=== PATIENT | male | born 1990 | race Caucasian/White ===

== ENCOUNTER 2020-07-28 19:55 | Emergency (ER) | payer OTHER, SELFPAY ==
[2020-07-28 20:45] VITALS: BP 177/104; PULSE 116; RESP 15; TEMP 37; O2SAT 100; BMI 31.7
--- NOTE | 2020-07-28 23:00 | PC.NURSE ---
PT PRESENTS WITH REPORTS OF CENTRALIZED ABD PAIN CONSTANT AT FIRST THEN INTERMITTENT. REPORTS BM WITH BRIGHT RED BLOOD ON TOILET PAPER. NAUSEA NO VOMITING, DENIES FEVER/CHILLS. STATES TRAVELED TO AND FROM [place] -07/28 AND ATE A LOT OF ETHNIC FOOD. DENIES SICK CONTACTS. SKIN PWD RESPIRATIONS EVEN UNLABORED. AWAITING TESTING. AWARE OF PLAN OF CARE.
[2020-07-28 23:02] VITALS: BP 169/99; PULSE 93; RESP 16; TEMP 36.8; O2SAT 97
--- NOTE | 2020-07-28 23:19 | ED_ITS ---
HPI - Abdominal Pain General Chief Complaint: Abdominal Pain Stated Complaint: ABD PAIN Time Seen by Provider: 07/28/20 22:58 Source: patient Mode of arrival: ambulatory History of Present Illness HPI narrative: patient states that today started with diarrhea. Several bouts. With a little bit of blood in his prove however that has resolved. Started having right upper quadrant cramping and some nausea. Went to urgent care and was referred to emergency department for evaluation. Upon arrival to emergency department symptoms have almost resolved. No fevers no chills. No dizziness no syncope MD elicited complaint: abdominal pain Pertinent past history: none Onset (ago): day(s) ( 1 day) Pain Consistency: now resolved Location: epigastric and RUQ Severity: mild Quality: cramping Related Data Previous Rx's Medication Instructions Recorded dicyclomine 20 mg PO BID #14 cap 07/29/20 ondansetron 4 mg PO Q8H PRN 5 Days #15 tab 07/29/20 Allergies Allergy/AdvReac Type Severity Reaction Status Date / Time No Known Allergies Allergy Verified 07/28/20 22:59 [No Known Allergies*] Review of Systems Review of Systems Constitutional : No Weight loss, No Fever, No Chills, No Night Sweats, No Fatigue, No Malaise ENT/Mouth : No Hearing loss, No Ear Pain, No Nasal Congestion, No Sinus Pain, No Hoarseness, No sore throat, No Rhinorrhea, No Swallowing Difficulty Eyes: No Eye Pain, No Swelling, No Redness, No Foreign Body, No Discharge, No Vision Changes Cardiovascular : No Chest Pain, No SOB, No Dyspnea on Exertion, No Orthopnea, No Edema, No Palpitations Respiratory : No Cough, No Sputum, No Wheezing, No Smoke Exposure, No Dyspnea Gastrointestinal : positive for nausea vomiting diarrhea No Constipation, positive abdominal Pain, No Hematochezia, No Melena Genitourinary : no irregular bleeding, No Dysuria, No Urinary Frequency, No Hematuria, No Urinary Incontinence, No Urgency, No Flank Pain, No Urinary Flow Changes, No Hesitancy Musculoskeletal : No joint pain, No Myalgias, No Joint Swelling Skin : No Skin Lesions, No rash Neuro : No Weakness, No Numbness, No Paresthesias, No Loss of Consciousness, No Dizziness, No Headache Psych : No Anxiety/Panic, No Depression, No SI/HI/AH/VH, No Social Issues, Heme/Lymph: No Bruising, No Bleeding,No Lymphadenopathy Endocrine : No Polyuria, No Polydipsia, No Temperature Intolerance Physical Exam Vital Signs and I&O and Narrative: Vital Signs and I&O: Vital Signs Temp 98.2 F 07/28/20 23:02 Pulse 93 07/28/20 23:02 Resp 16 07/28/20 23:02 BP 169/99 H 07/28/20 23:02 Pulse Ox 97 07/28/20 23:02 Intake & Output 07/28/20 07/28/20 07/29/20 06:59 18:59 06:59 Intake Total 1000 / 1000 Balance 1000 / 1000 Weight 97.522 kg Intake: Intake, IV Amoun t 1000 / 1000 0.9 % Sodium C hloride 1,000 ml 1000 / 1000 @ 999 mls/hr I VCONT .Q1H1M [facility] Rx#:[id number] Body Mass Index 31.7 Const: General: cooperative, healthy appearing and comfortable Orientation/consciousness: oriented to person HENMT: Head: Yes normal to inspection Eyes: Pupils: Equal, round and reactive pupils present Neck: Neck: Yes normal visual inspection Chest: Chest palpation & inspection: normal inspection of the chest Resp: Effort & Inspection: normal respiratory effort Auscultation: clear to auscultation bilaterally Cardio: Jugular venous distension: no JVD GI: Inspection: Yes normal to inspection Palpation (GI): Soft to palpation, not firm, nontender, no guarding and not rigid Percussion: Yes normal to percussion Auscultation: normal bowel sounds : General: Yes no CVA tenderness Back/Spine/Pelvis: Back: no CVA tenderness Skin: General skin exam: no rashes or lesions noted Lesions: no lesions Neuro: General: oriented to person Cranial nerves: Yes Equal, round and reactive pupils present Extrem: General: Yes normal to inspection Course Reevaluation(s) Reevaluation #1: patient much improved with IV fluids. IV medications. Re- examined discharge without signs of peritonitis. Patient states feels much better. No dizziness. Normal labs. I recommended patient follow-up with primary care doctor if symptoms persist or worsen can can not return to the emergency department. Patient did state that he had a little bit of blood before however I discussed with him reasons to follow-up and portions Time: 00:44 MDM - Abdominal Pain Differential Diagnosis Differential diagnosis: Likely diverticulitis, gastroenteritis, gastritis and pancreatitis Lab Data Result diagrams: 07/28/20 23:23 07/28/20 23:23 Labs: Lab Results 07/28/20 07/28/20 07/28/20 Range/Units 23:23 23:23 23:23 WBC 7.3 (4.8-10.8) X10*3/uL RBC 4.86 (4.60-5.80) X10*6/uL Hgb 14.6 (14.0-18.0) g/dl Hct 41.7 L (42-52) % MCV 85.8 (80-98) fL MCH 30.0 (27.0-33.0) pg MCHC 35.0 (31.0-36.0) g/dl RDW 12.1 (11.0-16.0) % Plt Count 168 (160-400) X10*3/uL MPV 11.4 (9.4-12.4) fL Immature Gran % (Auto) 0.4 (0.0-0.4) % Neut % (Auto) 58.2 (45-73) % Lymph % (Auto) 28.4 (20-40) % [place] % (Auto) 10.4 (2-11) % Eos % (Auto) 2.2 (0-4) % Baso % (Auto) 0.4 (0-2) % Neut # (Auto) 4.3 (2.0-8.3) X10*3/uL Lymph # (Auto) 2.1 (1.2-4.9) X10*3/uL [place] # (Auto) 0.8 (0.1-1.2) X10*3/uL Eos # (Auto) 0.2 (0.0-0.4) X10*3/uL Baso # (Auto) 0.0 (0.0-0.2) X10*3/uL Abs Immat Gran (auto) 0.03 (0.00-0.03) X10*3/uL Absolute Nucleated RBC 0.000 (0.0-0.012) X10*3/uL Nucleated RBC % (auto) 0.0 (0.0-0.2) /100WBC Hold Blue Top SEE NOTE Sodium (135-145) mmol/L Potassium (3.3-5.1) mmol/l Chloride (96-108) mmol/L Carbon Dioxide (22-29) mmol/L Anion Gap (12-20) BUN (9-16) mg/dL Creatinine (0.5-1.4) mg/dL Estim Creat Clear Calc Estimated GFR Random Glucose (60-115) mg/dL Calcium (8.4-10.2) mg/dL Total Bilirubin (0.0-1.0) mg/dL AST (5-37) U/L ALT (0-40) U/L Alkaline Phosphatase (39-117) U/L Total Protein (6.5-8.0) g/dL Albumin (3.5-5.0) g/dL Lipase (8-78) U/L Urine Color YELLOW Urine Appearance CLEAR Urine pH 5.5 (5.0-8.0) Ur Specific [place] 1.025 (1.005-1.025) Urine Protein NEG (NEG-TRACE) MG/DL Urine Glucose (UA) NEG (NEG) MG/DL Urine Ketones NEG (NEG) MG/DL Urine Blood NEG (NEG) Urine Nitrite NEG (NEG) Ur Leukocyte Esterase NEG (NEG) 07/28/20 Range/Units 23:23 WBC (4.8-10.8) X10*3/uL RBC (4.60-5.80) X10*6/uL Hgb (14.0-18.0) g/dl Hct (42-52) % MCV (80-98) fL MCH (27.0-33.0) pg MCHC (31.0-36.0) g/dl RDW (11.0-16.0) % Plt Count (160-400) X10*3/uL MPV (9.4-12.4) fL Immature Gran % (Auto) (0.0-0.4) % Neut % (Auto) (45-73) % Lymph % (Auto) (20-40) % [place] % (Auto) (2-11) % Eos % (Auto) (0-4) % Baso % (Auto) (0-2) % Neut # (Auto) (2.0-8.3) X10*3/uL Lymph # (Auto) (1.2-4.9) X10*3/uL [place] # (Auto) (0.1-1.2) X10*3/uL Eos # (Auto) (0.0-0.4) X10*3/uL Baso # (Auto) (0.0-0.2) X10*3/uL Abs Immat Gran (auto) (0.00-0.03) X10*3/uL Absolute Nucleated RBC (0.0-0.012) X10*3/uL Nucleated RBC % (auto) (0.0-0.2) /100WBC Hold Blue Top Sodium 140 (135-145) mmol/L Potassium 4.5 (3.3-5.1) mmol/l Chloride 104 (96-108) mmol/L Carbon Dioxide 25 (22-29) mmol/L Anion Gap 16 (12-20) BUN 18 H (9-16) mg/dL Creatinine 0.98 (0.5-1.4) mg/dL Estim Creat Clear Calc 130.4 Estimated GFR > 60 Random Glucose 100 (60-115) mg/dL Calcium 10.0 (8.4-10.2) mg/dL Total Bilirubin 0.4 (0.0-1.0) mg/dL AST 48 H (5-37) U/L ALT 84 H (0-40) U/L Alkaline Phosphatase 63 (39-117) U/L Total Protein 8.2 H (6.5-8.0) g/dL Albumin 4.9 (3.5-5.0) g/dL Lipase 39 (8-78) U/L Urine Color Urine Appearance Urine pH (5.0-8.0) Ur Specific [place] (1.005-1.025) Urine Protein (NEG-TRACE) MG/DL Urine Glucose (UA) (NEG) MG/DL Urine Ketones (NEG) MG/DL Urine Blood (NEG) Urine Nitrite (NEG) Ur Leukocyte Esterase (NEG) Discharge Plan Discharge Clinical Impression: Diarrhea Abdominal pain Qualifiers: Abdominal location: right upper quadrant Qualified Code(s): R10.11 - Right upper quadrant pain Patient Disposition: Home, Self-Care Instructions: Acute Diarrhea (ED), Abdominal Pain (ED) Additional Instructions: return to the emergency department if symptoms worsen Prescriptions: New dicyclomine 10 mg capsule 20 mg PO BID Qty: 14 RF: 0 ondansetron 4 mg tablet,disintegrating 4 mg PO Q8H PRN (Reason: nausea and vomiting) 5 Days Qty: 15 RF: 0 Referrals: [facility] [Provider Group] - 2 days Stand Alone Forms: Work/School Release Interventions: ED Discharge Assessment Last Done: 07/29/20 01:11 Discharge Date/Time: 07/29/20 01:12 [facility] Past Medical History Attestation statement: The following information was validated with the patient. Source: nursing notes reviewed Medical History No known health problems Surgical History Hx of appendectomy Social History Social History Alcohol intake: current Alcohol intake frequency: a few times a week Smoking Status: Light tobacco smoker Smoked in Last 30 Days: Yes Use of substances other than those prescribed or required for medical reasons: No Advance Directives: No Advance Directives Information Provided: No
[2020-07-28] MEDS: Famotidine/PF 20 MG/2 ML VIAL IVPUSH (23:25)
[2020-07-28] MEDS: 0.9 % Sodium Chloride 1,000 ML 999 ML IVCONT (23:25)
--- NOTE | 2020-07-28 23:25 | PC.NURSE ---
PT MEDICATED PER MD ORDER IVF HUNG AND INFUSING WITHOUT DIFFICULTY. BLOOD AND URINE SPECIMEN SENT TO LAB FOR PROCESSING, AWAITING RESULTS.AWARE OF PLAN OF CARE.
[2020-07-28 23:37] LABS: MANUAL DIFF FLAG NO
[2020-07-28 23:40] LABS: Basophils Percent Auto 0.4 % (0-2); Eosinophils Absolute Auto 0.2 X10*3/uL (0.0-0.4); Eosinophils Percent Auto 2.2 % (0-4); Hematocrit 41.7 % (42-52); Hemoglobin 14.6 g/dl (14.0-18.0); Imm Gran Abs Auto 0.03 X10*3/uL (0.00-0.03); Imm Gran Pct Auto 0.4 % (0.0-0.4); Lymphocytes Absolute Auto 2.1 X10*3/uL (1.2-4.9); Lymphocytes Percent Auto 28.4 % (20-40); Mean Corpuscular Volume 85.8 fL (80-98); Mean Platelet Volume 11.4 fL (9.4-12.4); Monocytes Absolute Auto 0.8 X10*3/uL (0.1-1.2); Monocytes Percent Auto 10.4 % (2-11); Neutrophils Absolute Auto 4.3 X10*3/uL (2.0-8.3); Neutrophils Percent Auto 58.2 % (45-73); Platelet Count 168 X10*3/uL (160-400); Red Blood Count 4.86 X10*6/uL (4.60-5.80); Red Cell Distribution Width 12.1 % (11.0-16.0); White Blood Count 7.3 X10*3/uL (4.8-10.8)
[2020-07-28 23:52] LABS: Glucose Urine UA NEG (NEG); Leukocyte Esterase Urine NEG (NEG); Nitrite Urine NEG (NEG); PH 5.5 (5.0-8.0); Specific Gravity - Urine 1.025 (1.005-1.025); Urine Blood NEG (NEG); Urine Ketones NEG (NEG); Urine Protein NEG (NEG-TRACE)
[2020-07-28 23:53] LABS: Appearance Urine CLEAR; Color Urine YELLOW; UACC Culture Trigger NO
[2020-07-29 00:07] LABS: Alanine Aminotransferase 84 U/L (0-40); Albumin Level 4.9 g/dL (3.5-5.0); Alkaline Phosphatase 63 U/L (39-117); Anion Gap 16 (12-20); Aspartate Amino Transferase 48 U/L (5-37); Bilirubin Total 0.4 mg/dL (0.0-1.0); Blood Urea Nitrogen 18 mg/dL (9-16); Carbon Dioxide 25 mmol/L (22-29); Chloride 104 mmol/L (96-108); Creatinine Clr Calc Pharmacy 130.4; Estimated Glomerular Filt Rate > 60; Glucose Random 100 mg/dL (60-115); Lipase 39 U/L (8-78); Potassium 4.5 mmol/l (3.3-5.1); Sodium 140 mmol/L (135-145); Total Protein 8.2 g/dL (6.5-8.0)
== END 2020-07-29 01:12 | disposition home or self-care (01) ==
PROVIDERS: Emergency Provider Emergency Medicine
DX: R10.11 Right upper quadrant pain (principal); R19.7 Diarrhea, unspecified
CPT/HCPCS: 36415; 80053; 81003; 83690; 85025; 96361; 96374; 99284

== ENCOUNTER 2022-08-31 17:00 | Emergency (ER) | payer OTHER, SELFPAY ==
--- NOTE | ~2022-08-31 | US_ITS ---
EXAMINATION: US VENOUS ULTRASOUND WITH DOPPLER LOWER EXTREMITY, LEFT CLINICAL INFORMATION: Left thigh pain. COMPARISON: None TECHNIQUE: Ultrasound of the deep veins is performed from the hip to the calf with compression sonography and color and pulse Doppler assessment. Spectral analysis with color-flow imaging is performed. FINDINGS: There is normal venous compression and respiratory variation and augmented flow. The visualized common femoral vein, femoral vein, profunda femoral vein, popliteal vein, and the posterior tibial and peroneal venous segments show no evidence of deep venous thrombosis. There is no significant popliteal fossa cyst. US/US venous duplex LE LT IMPRESSION: No DVT demonstrated in the left lower extremity.
--- NOTE | ~2022-08-31 | XR_ITS ---
EXAMINATION: XR KNEE, LEFT CLINICAL INFORMATION: Pain COMPARISON: None TECHNIQUE: Four views of the left knee. FINDINGS: There is no evidence for an acute fracture or dislocation. Trace effusion may be present. XR/XR knee LT 4V IMPRESSION: No acute fracture or dislocation.
[2022-08-31 17:06] VITALS: BP 149/99; PULSE 96; RESP 18; TEMP 36.5; O2SAT 98; BMI 34.7
[2022-08-31] MEDS: Ibuprofen 800 MG TABLET PO (19:37)
[2022-08-31] MEDS: predniSONE 20 MG TABLET 60 MG PO (19:37)
--- NOTE | 2022-08-31 19:49 | ED.GENADULT ---
HPI - General Adult General Chief complaint: Extremity Injury, Lower Stated complaint: L leg pain Time Seen by Provider: 08/31/22 18:13 Source: patient Mode of arrival: ambulatory Limitations: no limitations History of Present Illness HPI narrative: 31 yold male presents to the ED for left knee and lower thigh area above left knee that is painful. 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 Patient is not usually runner, but has been running the past two weeks and this morning he woke up with the pain. patient states he last ran two days ago. Patient states pain is only on movement and flexion/extension of knee. Patient denies any leg swelling, calf pain, chest pain, shorntess of breath, trauma, or any brown/dark/strawberry UA. Increase thirst or weakness Related Data Previous Rx's Medication Instructions Recorded dicyclomine 10 mg capsule 20 mg PO BID #14 caps 07/29/20 ondansetron 4 mg disintegrating 4 mg PO Q8H PRN nausea and 07/29/20 tablet vomiting 5 days #15 tabs naproxen 500 mg tablet 500 mg PO BID PRN pain 7 days #14 08/31/22 tabs prednisone 20 mg tablet 40 mg PO DAILY 5 days #10 tabs 08/31/22 Allergies Allergy/AdvReac Type Severity Reaction Status Date / Time No Known Allergies Allergy Verified 07/28/20 22:59 [No Known Allergies*] Review of Systems Review of Systems: lower thigh and left knee pain Yes all other systems are reviewed and are negative PMFSH Past Medical History Medical History No known health problems Surgical History Hx of appendectomy Social History Social History Alcohol intake: current Alcohol intake frequency: a few times a week Advance Directives: No Advance Directives Information Provided: Yes Physical Exam ED Vital Signs: Vital Signs - 24 hr 08/31/22 17:06 Temperature 97.7 F Pulse Rate 96 Respiratory Rate 18 Blood Pressure 149/99 H Pulse Oximetry 98 Oxygen Delivery Method Room Air BMI result Body Mass Index 34.7 Const General: cooperative, healthy appearing, comfortable, no acute distress, well developed, alert, awake and Physically active Orientation/consciousness: oriented to time and patient oriented x3 [facility] Head: Yes normal to inspection, Yes No palpable skull fracture present, Yes normocephalic, Yes atraumatic and No abrasion Eyes General: appearance normal, both eyes and all related structures Neck Neck: Yes normal visual inspection, Yes full ROM, Yes no lymphadenopathy, Yes no meningeal signs, Yes trachea midline, Yes supple, No anterior neck swelling and No tender Chest Chest palpation & inspection: normal inspection of the chest and normal palpation of entire chest wall Resp Effort & Inspection: normal respiratory effort and able to speak in complete sentences Auscultation: clear to auscultation bilaterally Cardio Jugular venous distension: no JVD Heart sounds: S1 normal heart sound present and S2 normal heart sound present GI Inspection: Yes normal to inspection and No abdominal wall ecchymosis Palpation (GI): Soft to palpation, nontender, no guarding and not rigid General: No CVA tenderness and Yes no CVA tenderness Back/Spine/Pelvis Back: no CVA tenderness, No CVA tenderness and No back tenderness Skin General skin exam: no rashes or lesions noted and elasticity normal Neuro General: oriented to time, patient oriented x3, gait normal, tone normal, no meningeal signs and CN's II-XI intact bilaterally Cranial nerves: Yes CN's II-XII intact bilaterally Extrem General: Yes normal to inspection and Yes full ROM Knee images: 1. Tenderness on palpation. Negative for erythema, ecchymosis, crepitus, or deformity. Negative for dip to indicate patellar tendon rupture. Negative for palpable mass. Popliteal pulses intact. Rest of extremity normal. Motor/neuro/vascular exam intact. 2. Slight tenderness on palpation. Negative for any ecchymosis, crepitus, deformity, redness, or swelling. Positive for pain on range of motion. Sub extremity motor/neuro/vascular exam intact Psych Appearance: grossly normal, well kempt and not disheveled Course Course Course Narrative: Ultrasound of lower extremity ordered. X-ray of lower extremity ordered. Reevaluation(s) Reevaluation #1: X-ray negative for knee fracture or dislocation. X-ray negative for signs of quadriceps tendon rupture. Ultrasound negative for DVT. Vital signs are stable. Not suspecting rhabdomyolysis presently. Patient has normal color urine and states he is drinking water and not dehydrated. Vital signs stable. Patient does not have pain out of proportion of small area of pain above left knee. Patient has patellofemoral syndrome. Time: 20:02 Medical Decision Making MDM Narrative Medical decision making narrative: Patella femoral syndrome Discharge Plan Discharge Clinical Impression: Patella-femoral syndrome Patient Disposition: Home, Self-Care Instructions: Patellofemoral Pain Syndrome (ED), Patellofemoral Pain Syndrome Exercises (ED) Additional Instructions: You need to rest and no sports/training activities for at least for the next 5 days. Recommend rest, elevation, and warm compression. Return to the ED if pain worsens or out of proportion, any swelling, redness, red streaks, bluish black discoloration, numbness/tingling, coldness, chest pain, dark or strawberry color urine, shortness of breath, chest pain inspiration, weakness, or any other concerning symptoms. If there is no improvement you may need to follow-up with your primary care provider for MRI. Prescriptions: New naproxen 500 mg tablet 500 mg PO BID PRN (Reason: pain) 7 Days Qty: 14 0RF prednisone 20 mg tablet 40 mg PO DAILY 5 Days Qty: 10 0RF No Action dicyclomine 10 mg capsule 20 mg PO BID Qty: 14 0RF ondansetron 4 mg tablet,disintegrating 4 mg PO Q8H PRN (Reason: nausea and vomiting) 5 Days Qty: 15 0RF Stand Alone Forms: Work/School Release Interventions: ED Discharge Assessment Last Done: 08/31/22 20:22 Discharge Date/Time: 08/31/22 20:23 Print Language: Sen[place]e
== END 2022-08-31 20:23 | disposition home or self-care (01) ==
PROVIDERS: Emergency Provider Student in an Organized Health Care Education/Training Program
DX: M22.2X2 Patellofemoral disorders, left knee (principal); M79.605 Pain in left leg
CPT/HCPCS: 73564; 93971; 99283; 99285

== ENCOUNTER 2023-03-13 18:11 | Emergency (ER) | payer OTHER, SELFPAY ==
--- NOTE | ~2023-03-13 | XR_ITS ---
EXAMINATION: XR FOOT, RIGHT CLINICAL INFORMATION: Malik right great toe pain. COMPARISON: None available. TECHNIQUE: AP, lateral, and oblique views of the right foot. FINDINGS: The bones and soft tissues are normal. No acute fracture. Alignment is anatomic. There is a small retrocalcaneal enthesophyte. Joint spaces are maintained. XR/XR foot RT min 3V IMPRESSION: Small retrocalcaneal enthesophyte otherwise unremarkable right foot exam.
[2023-03-13 18:31] VITALS: BP 145/76; PULSE 102; RESP 20; TEMP 36.8; O2SAT 98; BMI 34.0
--- NOTE | 2023-03-13 18:32 | ED_ITS ---
HPI - Extremity Injury (Lower) General Chief Complaint: Extremity Injury, Lower <ALLEGRA Acevedo - Last Filed: 03/13/23 18:33> Stated Complaint: broke right big toe? <ALLEGRA Acevedo - Last Filed: 03/13/23 18:33> Time Seen by Provider: 03/13/23 19:12 <ALLEGRA Acevedo - Last Filed: 03/13/23 18:33> Source: patient <Deborah Clements MD - Last Filed: 03/13/23 20:50> Mode of arrival: ambulatory <Deborah Clements MD - Last Filed: 03/13/23 20:50> Limitations: no limitations <Deborah Clements MD - Last Filed: 03/13/23 20:50> History of Present Illness HPI Narrative: 32-year-old male presents with right great toe pain after running no known injury or trauma to the foot, he reports constant throbbing pain. No history of gout. Would thinks that it might be broken would like an x-ray. <Deborah Clements MD - Last Filed: 03/13/23 20:50> Related Data Home Medications: Previous Rx's Medication Instructions Recorded dicyclomine 10 mg capsule 20 mg PO BID #14 caps 07/29/20 ondansetron 4 mg disintegrating 4 mg PO Q8H PRN nausea and 07/29/20 tablet vomiting 5 days #15 tabs naproxen 500 mg tablet 500 mg PO BID PRN pain 7 days #14 08/31/22 tabs prednisone 20 mg tablet 40 mg PO DAILY 5 days #10 tabs 08/31/22 <ALLEGRA Acevedo - Last Filed: 03/13/23 18:33> Allergies/Adverse Reactions: Allergies Allergy/AdvReac Type Severity Reaction Status Date / Time No Known Allergies Allergy Verified 07/28/20 22:59 [No Known Allergies*] <ALLEGRA Acevedo - Last Filed: 03/13/23 18:33> Review of Systems Review of Systems: All other systems are reviewed and are negative Constitutional: Reports as per HPI and Reports no additional constitutional complaints Eyes: Reports as per HPI and Reports no additional eye complaints Reports system reviewed and no additional complaints, except as documented Cardiovascular: Reports as per HPI and Reports no additional cardiovascular complaints Respiratory: Reports as per HPI and Reports no additional respiratory complaints Gastrointestinal: Reports as per HPI and Reports no additional gastrointestinal complaints Genitourinary: Reports no additional female genitourinary complaints Musculoskeletal: Reports no additional musculoskeletal complaints Skin/Breast: Reports system reviewed and no additional complaints, except as docu Psychiatric: Reports no additional psychiatric complaints Endocrine: Reports no additional endocrine complaints Hematologic/Lymphatic: Reports no additional hematologic/lymphatic complaints Allergic/Immunologic: Reports no additional allergic/immunologic complaints Reports system reviewed and no additional complaints, except as documented and Reports Abnormal speech present <Deborah Clements MD - Last Filed: 03/13/23 20:50> PMFSH Past Medical History Medical History: Medical History No known health problems <ALLEGRA Acevedo - Last Filed: 03/13/23 18:33> Surgical History: Surgical History Hx of appendectomy <ALLEGRA Acevedo - Last Filed: 03/13/23 18:33> Social History Social History: Social History Alcohol intake: current Alcohol intake frequency: a few times a week Advance Directives: No Advance Directives Information Provided: No <ALLEGRA Acevedo - Last Filed: 03/13/23 18:33> Physical Exam Vital Signs: Vital Signs: Last Vital Signs Temp 97.7 F 03/13/23 19:29 Pulse 93 03/13/23 19:29 Resp 18 03/13/23 19:29 BP 178/94 H 03/13/23 19:29 Pulse Ox 96 03/13/23 19:29 O2 Del Method Room Air 03/13/23 19:29 BMI result Body Mass Index 34.0 <ALLEGRA Acevedo - Last Filed: 03/13/23 18:33> Vital Signs: Last Vital Signs Temp 97.7 F 03/13/23 19:29 Pulse 93 03/13/23 19:29 Resp 18 03/13/23 19:29 BP 178/94 H 03/13/23 19:29 Pulse Ox 96 03/13/23 19:29 O2 Del Method Room Air 03/13/23 19:29 BMI result Body Mass Index 34.0 Vital signs have been reviewed as appeared to be correct. Blood pressure elevated. Heart rate normal. Respiration rate normal. Temperature normal. Oxygen saturation normal. <Deborah Clements MD - Last Filed: 03/13/23 20:50> Appearance: Alert. Oriented X3. No acute distress. Head: Normal external exam. Normocephalic. Atraumatic. No Grissom signs noted. No raccoon eyes noted Eyes: PERRLA. EOMI. Conjunctiva and sclera normal. Eyelids normal. ENT: TM's Normal. Pharynx normal. Uvula midline. Moist mucous membranes. No trismus noted. No drooling noted. No muffled voice noted. Neck: Normal inspection. Neck supple. FROM. No adenopathy. Thyroid Normal. No meningeal signs. No neck mass noted. CVS: Normal heart rate and rhythm. Heart sound normal. No murmurs noted. Pulses normal throughout. Respiratory: No respiratory distress. Painless inspiration. Breath sounds normal. No wheezes/rales/rhonchi noted. Chest nontender. No accessory muscle usage noted or decreased air movement noted. Abdomen: Soft and nontender. Bowel sounds normal in all 4 quadrants. No distention noted. No organomegaly noted. No visible injury noted. Back: No CVA tenderness. Full range of motion noted. Skin: Skin warm and dry. Normal skin color. Normal skin turgor. No rashes/lesions/lacerations noted. Extremities: Tenderness over the right big toe, no redness, no deformity, normal neurovascular exam. Neuro: Oriented X 3. Cranial nerve exam: II-XII are grossly intact No motor deficit. No sensory deficit. Reflexes normal. <Deborah Clements MD - Last Filed: 03/13/23 20:50> Course Course Course Narrative: This is an RME: Additional HPI, ROS, PE not included below will be deferred to primary provider. 32-year-old male presents with right great toe pain after running, he reports constant throbbing pain. No history of gout. Would thinks that it might be broken would like an x-ray. Plan at this time x-ray <ALLEGRA Acevedo - Last Filed: 03/13/23 18:33> This is an RME: Additional HPI, ROS, PE not included below will be deferred to primary provider. Plan at this time x-ray <Deborah Clements MD - Last Filed: 03/13/23 20:50> Reevaluation(s) Reevaluation #1: 32-year-old male came in with right great toe pain and swelling after exercise, no known trauma or injury to the right foot or great toe, no known history of gout. No abnormalities on the x-ray, gout arthritis is unlikely diagnoses will treat with prednisone for 5 days. <Deborah Clements MD - Last Filed: 03/13/23 20:50> Time: : <Deborah Clements MD - Last Filed: 03/13/23 20:50> Medications Administered Discontinued Medications Generic Name Dose Route Start Last Admin Trade Name Freq PRN Reason Stop Dose Admin Prednisone 60 mg 03/13/23 20:18 03/13/23 20:47 Prednisone 20 Mg Tablet PO 03/13/23 20:19 60 mg ONCE ONE Administration <ALLEGRA Acevedo - Last Filed: 03/13/23 18:33> Medications Administered Discontinued Medications Generic Name Dose Route Start Last Admin Trade Name Freq PRN Reason Stop Dose Admin Prednisone 60 mg 03/13/23 20:18 03/13/23 20:47 Prednisone 20 Mg Tablet PO 03/13/23 20:19 60 mg ONCE ONE Administration <Deborah Clements MD - Last Filed: 03/13/23 20:50> Medical Decision Making Differential Diagnosis Differential Diagnoses: The differential diagnosis associated with the presentation includes (Righ t great toe injury, toe fracture, gout arthritis.) <Deborah Clements MD - Last Filed: 03/13/23 20:50> Independent Interpretation I performed an independent interpretation of an: Plain X-Ray (Right foot: No acute fracture or dislocation.) <Deborah Clements MD - Last Filed: 03/13/23 20:50> Radiology Impression Discussion of test interpretation with radiology: I have reviewed the radiologist's reading. <Deborah Clements MD - Last Filed: 03/13/23 20:50> Discharge Plan Discharge Clinical Impression: Gout, arthritis <ALLEGRA Acevedo - Last Filed: 03/13/23 18:33> Patient Disposition: Home, Self-Care <ALLEGRA Acevedo - Last Filed: 03/13/23 18:33> Instructions: Gout (ED) <ALLEGRA Acevedo - Last Filed: 03/13/23 18:33> Prescriptions: No Action dicyclomine 10 mg capsule 20 mg PO BID Qty: 14 0RF ondansetron 4 mg tablet,disintegrating 4 mg PO Q8H PRN (Reason: nausea and vomiting) 5 Days Qty: 15 0RF naproxen 500 mg tablet 500 mg PO BID PRN (Reason: pain) 7 Days Qty: 14 0RF prednisone 20 mg tablet 40 mg PO DAILY 5 Days Qty: 10 0RF <ALLEGRA Acevedo - Last Filed: 03/13/23 18:33> Stand Alone Forms: Work/School Release <ALLEGRA Acevedo - Last Filed: 03/13/23 18:33>
[2023-03-13 19:29] VITALS: BP 178/94; PULSE 93; RESP 18; TEMP 36.5; O2SAT 96
[2023-03-13] MEDS: predniSONE 20 MG TABLET 60 MG PO (20:47)
== END 2023-03-13 21:02 | disposition home or self-care (01) ==
PROVIDERS: Emergency Provider Emergency Medicine
DX: M10.071 Idiopathic gout, right ankle and foot (principal); M79.674 Pain in right toe(s); I10 Essential (primary) hypertension; Z79.899 Other long term (current) drug therapy
CPT/HCPCS: 73630; 99283

== ENCOUNTER 2025-04-04 13:27 | Outpatient (AMB) | payer OTHER, SELFPAY ==
--- NOTE | 2025-04-04 13:19 | MHC.PC.OV ---
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 Blood pressure is running high. compliant with amlodipine 5mg daily. History of gout, recently seen in urgent care has not started the prednisone but is planning to. Stressed at work, increased hours. No panic attacks, no insomnia ROS see HPI PHYSICAL EXAM: GENERAL: Alert and oriented x 3. NAD EYES: EOMI. Anicteric. HENT: Moist mucous membranes. No scleral icterus. No cervical lymphadenopathy. LUNGS: Clear to auscultation bilaterally. CARDIOVASCULAR: Regular rate and rhythm. No murmur. No JVD. ABDOMEN: Soft, non-tender +bs EXTREMITIES: No edema. Non-tender. SKIN: No rashes or lesions. Warm. NEUROLOGIC: No focal neurological deficits. CN II-XII grossly intact PSYCHIATRIC: Cooperative. 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 1. Little interest or pleasure in doing things: not at all 2. Feeling down, depressed, or hopeless: not at all 3. Trouble falling or staying asleep, or sleeping too much: not at all 4. Feeling tired or having little energy: not at all 5. Poor appetite or overeating: not at all 6. Feeling bad about yourself - or that you are a failure or have let yourself or your family down: not at all 7. Trouble concentrating on things, such as reading the newspaper or watching television: not at all 8. Moving or speaking so slowly that other people could have noticed. Or the opposite - being so fidgety or restless that you have been moving around a lot more than usual: not at all 9. Thoughts that you would be better off or of hurting yourself in some way: not at all Total score: 0 Depression Screening Interpretation: Negative Depression Screening Done: Yes 00311 - PHQ-9 Billing: Yes Source: Developed by Drs. Billy Aguilar, Supriya Omalley, Samir Madden and colleagues, with an educational frank from [employer]. Thrive Questionnaire Date Thrive assessed: 04/04/25 I am a: Patient What is your living situation today?: I have a steady place to live Within the past 12 months, did the food you bought not last and you didn't have the money to get more?: Never true Within the past 12 months, did you worry whether your food would run out before you got money to buy more?: Never true Do you have trouble paying for medicines?: No Do you have trouble getting transportation to medical appointments?: No Do you have trouble paying your heating and electricity bill?: No Do you have trouble taking care of your child, family member or friend?: No Do you have trouble with day-to-day activities such as bathing, preparing meals, shopping, managing finances, etc.?: No Are you currently unemployed and looking for a job?: No Are you interested in more education?: Yes Please select the resources that you would like help with: None Currently or been in a relationship where the following occur: No concerns reported THRIVE Score: 0 AUDIT C Alcohol Use Questionnaire (AUDIT-C) 1. How often do you have a drink containing alcohol?: 2-4 times a month 2. How many drinks containing alcohol do you have on a typical day when you are drinking?: 3 or 4 3. How often do you have six or more drinks on one occasion?: Monthly Total Score: 5 KASANDRA-7 AMB Questionnaire KASANDRA-7 Date KASANDRA - 7 assessed: 04/04/25 Feeling nervous, anxious, or on edge: 0 = Not at all Not being able to stop or control worryin = Not at all Worrying too much about different things: 0 = Not at all Trouble relaxin = Not at all Being so restless that it is hard to sit still: 0 = Not at all Becoming easily annoyed or irritable: 0 = Not at all Feeling afraid as if something awful might happen: 0 = Not at all Total KASANDRA-7 score (0-4 normal; 5-9 mild; 10-14 moderate; 15-21 severe): 0 Source: Developed by Drs. Billy Aguilar, Supriya Omalley, Samir Madden and colleagues, with an educational frank from [employer]. KASANDRA-7 Assessment Billing KASANDRA-7 Assessment Tool: KASANDRA-7 Assessment 27155 Physical exam (Primary Care) Depression Screening Interpretation: Negative Thrive Assessment: Date of Thrive Assessment Date Thrive assessed 04/04/25 04/04/25 13:22 Currently or been in a relationship where the following occur: No concerns reported Coding Level of Care Code New Pt Level 4 (73877) Complex EM visit Add On G2211 Diagnoses Hypertension I10 Overweight E66.3 Elevated LFTs R79.89 Low vitamin D level R79.89 Additional Codes KASANDRA-7 Assessment Billing - KASANDRA-7 Assessment Tool: KASANDRA-7 Assessment 55670 ([id number]) PHQ-9 - 10985 - PHQ-9 Billing: Yes ([id number]) Assessment & Plan Assessment & Plan (1) Hypertension: Code(s): I10 - Essential (primary) hypertension Category: Medical (2) Overweight: Code(s): E66.3 - Overweight Category: Medical (3) Elevated LFTs: Code(s): R79.89 - Other specified abnormal findings of blood chemistry Category: Medical (4) Low vitamin D level: Code(s): R79.89 - Other specified abnormal findings of blood chemistry Category: Medical Plan 34 year old to establish care Past medical, surgical, social reviewed HTN-suboptimal control. increase norvasc to 10mg daily Stress & anxiety. Declines meds etc. Labs ordered Weight gain-labs ordered. Might consider GLP Orders: Orders Complete Blood Count Auto Diff Today E66.3 - Overweight, F41.9 - Anxiety disorder, unspecified, I10 - Essential (primary) hypertension, R79.89 - Other specified abnormal findings of blood chemistry, Z13.0 - Encounter for screening for diseases of the blood and blood-forming organs and certain disorders involving the immune mechanism, Z13.228 - Encounter for screening for other metabolic disorders Comprehensive Met. Panel Today E66.3 - Overweight, F41.9 - Anxiety disorder, unspecified, I10 - Essential (primary) hypertension, R79.89 - Other specified abnormal findings of blood chemistry, Z13.0 - Encounter for screening for diseases of the blood and blood-forming organs and certain disorders involving the immune mechanism, Z13.228 - Encounter for screening for other metabolic disorders Hemoglobin A1c Today E66.3 - Overweight, F41.9 - Anxiety disorder, unspecified, I10 - Essential (primary) hypertension, R79.89 - Other specified abnormal findings of blood chemistry, Z13.0 - Encounter for screening for diseases of the blood and blood-forming organs and certain disorders involving the immune mechanism, Z13.228 - Encounter for screening for other metabolic disorders Vitamin D 25-OH (D2 and D3) Today E66.3 - Overweight, F41.9 - Anxiety disorder, unspecified, I10 - Essential (primary) hypertension, R79.89 - Other specified abnormal findings of blood chemistry, Z13.0 - Encounter for screening for diseases of the blood and blood-forming organs and certain disorders involving the immune mechanism, Z13.228 - Encounter for screening for other metabolic disorders Uric Acid Today E66.3 - Overweight, F41.9 - Anxiety disorder, unspecified, I10 - Essential (primary) hypertension, R79.89 - Other specified abnormal findings of blood chemistry, Z13.0 - Encounter for screening for diseases of the blood and blood-forming organs and certain disorders involving the immune mechanism, Z13.228 - Encounter for screening for other metabolic disorders Lipid Panel Today E66.3 - Overweight, F41.9 - Anxiety disorder, unspecified, I10 - Essential (primary) hypertension, R79.89 - Other specified abnormal findings of blood chemistry, Z13.0 - Encounter for screening for diseases of the blood and blood-forming organs and certain disorders involving the immune mechanism, Z13.228 - Encounter for screening for other metabolic disorders TSH reflex Free T4 Today E66.3 - Overweight, F41.9 - Anxiety disorder, unspecified, I10 - Essential (primary) hypertension, R79.89 - Other specified abnormal findings of blood chemistry, Z13.0 - Encounter for screening for diseases of the blood and blood-forming organs and certain disorders involving the immune mechanism, Z13.228 - Encounter for screening for other metabolic disorders Testosterone, Free/Total Today E66.3 - Overweight, F41.9 - Anxiety disorder, unspecified, I10 - Essential (primary) hypertension, R79.89 - Other specified abnormal findings of blood chemistry, Z13.0 - Encounter for screening for diseases of the blood and blood-forming organs and certain disorders involving the immune mechanism, Z13.228 - Encounter for screening for other metabolic disorders Vitamin B12 and Folate Today E66.3 - Overweight, F41.9 - Anxiety disorder, unspecified, I10 - Essential (primary) hypertension, R79.89 - Other specified abnormal findings of blood chemistry, Z13.0 - Encounter for screening for diseases of the blood and blood-forming organs and certain disorders involving the immune mechanism, Z13.228 - Encounter for screening for other metabolic disorders Medications: New amlodipine 10 mg PO DAILY 90 tabs 3RF
[2025-04-04 13:32] VITALS: BP 148/106; PULSE 91; RESP 16; TEMP 37; O2SAT 96; BMI 32.5
[2025-04-04 13:35] VITALS: BP 142/102
--- OUTSIDE RECORDS SUMMARY | 2025-04-04 15:09 | XMS_ITS | Data Portability ---
Author Organization [place] - [facility], Allergy Address [address] [address] Assessment Encounter Date Assessment Date Assessment LastModified by Organization Details LastModified Time 04/13/2024 04/13/2024 Patient with chronic persistent low-level balance disturbance of unclear etiology. With further discussion today this is more likely to be a vestibular migraine phenomenon than anything else at this point. I suspect that the previously untreated obstructive sleep apnea may have been a major trigger for him. Fortunately he has just started on CPAP and I am hoping that his symptoms will improve after consistent use over the next 4 to 6 weeks. We will schedule him a telehealth visit in 6 weeks or so to reevaluate his symptoms and if he is still significantly symptomatic, we can consider the use of pharmacologic intervention in the form of low-dose nortriptyline. He will continue to work with [facility] for physical therapy. Not available 04/13/2024 10:36:02 05/26/2024 05/26/2024 Patient with chronic persistent low-level balance disturbance of unclear etiology. As time goes by, his symptoms seem to be most consistent with vestibular migraine, complicated by chronic underlying anxiety. As such, the symptoms could possibly be classified as Persistent Postural Perceptual Dizziness (PPPD). This is a complex neurological phenomenon which has a multifactorial etiology. Today we discussed that PPPD symptoms are caused by chronic brain hypersensitivity resulting in difficulty with processing of balance information from the inner ears, the eyes, and the proprioceptive system. Treatment for this is difficult and requires a multifactorial approach. I've directed the patient towards a significant amount of literature to read at home so that they can learn more about this complex problem. Patient is likely to continue to benefit from intensive vestibular rehabilitation therapy. We discussed the possibility of a medication trial such as low-dose nortriptyline which I have had some success with in treating this in the past. Occasionally medications such as SSRIs or SNRIs can be useful in alleviating some symptoms though I have much less experience using these medications and may need to enlist his primary care physician if we decide this route. Psychological counseling and cognitive behavioral therapy with a therapist who is aware of PPPD have also been shown to be useful as part of an intervention plan, so he can bring this up with his psychologist, particularly how it relates to his underlying anxiety. If these interventions are not successful, I would recommend evaluation by a neurologist who can evaluate for other cognitive, sensory or motor abnormalities that would otherwise explain these symptoms. In the meantime, patient will continue to work on getting his previous workup from [facility] so that we can see what previous testing has been done. Patient did not want to initiate pharmacotherapy at the moment. I did recommend he sign up for the patient portal so that he can contact me with further questions or request prescription for nortriptyline which I typically initiate at 10 mg at bedtime. [email or web address] Not available 05/26/2024 11:19:43 Plan of Treatment Reminders Order Date Submit Date Provider Last Modified By Organization Details Last Modified Time Details Appointments None record ed. Lab None record ed. Referral None record ed. Procedures None record ed. Surgeries None record ed. Imaging None record ed. Medication Orders None record ed. Patient TargetsNo targets recorded. Patient InstructionsNo instructions recorded. Reason for Referral None Reported. Results Created Date Observation Date Name Description Value Unit Range Abnormal Flag Note LastModifiedBy Organization Detail LastModifiedTime 06/16/2010/15/2023 jadeni ng/marcela soto tic resul t No observ ation record ed. [email or web address] Not Available 00:39:24 Result Notes None recorded. Problems Name Problem SNOMED Code Status Onset Date Resolution Date Notes Provider Name and Address Organization Details Recorded Time Dizziness and giddiness 032443516 Active 2022 Dizziness and giddiness; Note: Date Diagnosed: 10/15/2023 10:41 AM (R42) Not Available [facility] 03:00:54 Snoring 61368983 Active 2022 Snoring; Note: Date Diagnosed: 10/15/2023 10:41 AM (R06.83) Not Available [facility] 4 03:00:54 Obstructi ve sleep apnea syndrome 87887269 Active 2023 EMI PAULSON MD [address] [facility],[place], [place], [address] , [place] - [facility] 4 10:27:55 Refractor y migraine 302154375 Active 2023 EMI PAULSON MD [address] [facility],[place] [facility], [place], [address] , [place] [facility] 4 09:52:38 Vertigo of central origin 68624720 Active 2023 EMI PAULSON MD [address] [facility],[place] [facility], [place], [address] , [place] [facility] 4 09:52:38 Generaliz ed anxiety disorder 69158491 Active 2023 EMI PAULSON MD [address] [facility],[place] [facility], [place], [address] , [place] [facility] 4 09:54:42 Persisten t postural perceptua l dizziness 941352058 Active 2023 EMI PAULSON MD [address] [facility],[place] [facility], [place], [address] , [place] [facility] 4 11:18:11 Problem Notes None recorded. Procedures Surgical History Date Name Laterality Status Provider Name and Address Organization Details Recorded Time 4 Telehealth completed EMI PAULSON MD [address] [facility],[place] [facility], [facility] [place], [address], [place] - [facility] 05/26/2024 11:11:46 Appendectomy completed Tessie Diane [place] - [facility] 04/13/2024 10:08:09 Imaging Results None recorded. Procedure Notes None recorded. Medical Equipment None Reported. Allergies No known drug allergies Medications Name Sig Start Date Stop Date Status Note LastModified by Organization Details LastModified Time amlodipine 2.5 mg tablet Take 1 tablet every day by oral route. active Not Available Not Available No t Available nortriptyline 10 mg capsule Take 1 capsule every day by oral route at bedtime. 2023 active Not Available Not Available Not Avai lable Vitals Date Recorded Body height Body weight Provider Name and Address Organization Details Last Updated DateTime 04/13/2024 175.26 cm 152948.21 g Tessie Diane [place] [facility] 04/13/2024 10:07:48 Social History Question Answer Notes LastModified by [employer] Details LastModified Time Tobacco Smoking Status Former Smoker Tessie fowler [place] [facility] 04/13/2024 10:08:00 How Much Tobacco Do You Chew? 5+/day [email or web address] Information not available 04/23/2024 Sex: Unknown Functional Status Question Answer Note LastModified by [employer] Details LastModified Time Do you or have you ever used any other forms of tobacco or nicotine? Yes [email or web address] Information not available 04/23/2024 Do you or have you ever used smokeless tobacco? Currently chews tobacco [email or web address] Information not available 04/23/2024 Mental Status None recorded. Family History Nothing Reported. Medical History No medical history recorded. Past Encounters Encounter ID Performer Location Encounter Start Date Encounter Closed Date Diagnosis/Indication Diagnosis SNOMED-CT Code Diagnosis ICD10 Code Diagnosis Note [id number] EMI PAULSON MD [facility] [address] [address] 04/13/2024 09:57:27 04/15/2024 12:30:01 Dizziness and giddiness 657168007 R42 Snoring 68769822 R06.83 Obstructiv e sleep apnea syndrome 08947204 G47.33 [id number] EMI PAULSON MD [facility] [address] [address] 05/26/2024 08:45:08 06/01/2024 07:32:33 Obstructive sleep apnea syndrome 03669433 G47.33 I recommende d he continue full-time use of CPAP, as untreated sleep apnea can serve as a persistent trigger for his symptoms. Vertigo of central origin 21950345 H81.4 Refractory migraine 4238 43412 G43.919 Generalize d anxiety disorder 11057361 F41.1 Persistent postural perceptual dizziness 683109899 R42 Health Concerns Section Related Observation LastModified by Organization Detai ls LastModified Time None Recorded Concern Status LastModified by Organization Details LastModified Time None Recorded Advance Directives Directive None Recorded Payers Insurance Date Sequence Insurance Name Policy Number Policy Travis Covered Member ID Travis Member ID Guarantor Name 10/28/2024 1 [employer] () Rhys Osborn [id number] Rhys Osborn 10/28/2024 1 [facility] () Rhys Osborn [id number] Rhys Osborn Notes Date Note Type Note Provider Name and Address Organization Details Recorded Time 04/13/2024 text/html 32-year-old male who I saw back in September for evaluation of balance disturbance. 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 Last four years or so, he's been having problems with episodic dizzy spells. About twice year, he will wake up with a sensation of pressure in his head, accompanied by a feeling off balance and dizzy, with a sensation of following to one side or the other with a mild sensation of spinning. He is still able to walk around and go to work, but he is symptomatic with this for up to a week. In between episodes, he has a chronic sensation of feeling like he's leaning one side or the other, without sensation of motion or spinning. He reports that he does not get regular head pressure or headaches in general. He notes no peculiar visual disturbances. He notices no episodic tinnitus or fluctuating hearing. Patient does snore at night and does note daytime somnolence. Patient has been seen by medical practitioners at [facility] in [place], but he does not have access to these records today. Patient reports that he has had some scans and testing done but is unclear as to what was actually tested. At our last visit we discussed the possibility that this could represent an underlying atypical migraine phenomenon. I was concerned about snoring and daytime somnolence so I ordered a sleep study which showed obstructive sleep apnea. He just started using CPAP about 2 weeks ago. I also recommended he contact his healthcare providers at [facility] to see if he could get his old records as to not repeat testing that was already done. He did not do this. I had patient reports that over the past 6 months he has had worsening of his symptoms such that he has been noticing a more pronounced sensation of leaning backwards, which is resulting in discomfort and anxiety. He is symptomatic with this while ambulatory but also while sitting. He is still mildly symptomatic when laying down. No true vertigo spells. His symptoms are pronounced and are present almost all of the time. Also notes that when he bends over and gets back up, he will have a sensation of lightheadedness. Patient is working with [facility] for vestibular therapy. EMI PAULSON MD [address] [place] [address], [phone], [facility] 04/13/2024 10:36:22 05/26/2024 text/html 32-year-old male who I saw 2022 in September for evaluation of balance disturbance. 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 About twice year, he will wake up with a sensation of pressure in his head, accompanied by a feeling off balance and dizzy, with a sensation of following to one side or the other with a mild sensation of spinning. He is still able to walk around and go to work, but he is symptomatic with this for up to a week. In between episodes, he has a chronic sensation of feeling like he's leaning one side or the other, without sensation of motion or spinning. Patient has been seen by medical practitioners at [facility] in [place]. Patient reports that he has had some scans and testing done but is unclear as to what was actually tested. I have asked him several times to obtain these medical records but he has been unsuccessful in doing so. When I saw him last back in March 2024, patient reported that over the past 6 months he has had worsening of his symptoms such that he has been noticing a more pronounced sensation of leaning backwards, which is resulting in discomfort and anxiety. He is symptomatic with this while ambulatory but also while sitting. He is still mildly symptomatic when laying down. No true vertigo spells. His symptoms are pronounced and are present almost all of the time. Also notes that when he bends over and gets back up, he will have a sensation of lightheadedness. Patient is working with [facility] for vestibular therapy. He is doing home vestibular exercises, many of which are vestibular ocular. He is working out on a consistent basis, going to work and socializing despite the attendant difficulties with these activities. Patient also has obstructive sleep apnea and when I saw him last he had just started using CPAP. Patient reports that he has been using CPAP faithfully over the past 6 weeks. He reports that despite consistent use of the CPAP, his symptoms have not improved. Patient reports today that his symptoms persist, much like we have discussed in the past. He has a constant floaty sensation. He has been having more consistent sensation of generalized tightness in his head with mild achiness about 15 days out of the month. He reports that his symptoms seem to be closely associated with anxiety. It is difficult for him to tell whether the anxiety may be a cause of the dizziness, or a result of the dizziness. He has recently initiated contact with psychologist to help with the anxiety. EMI PAULSON MD [address] [place] [address], [phone], [facility] - [facility] 05/26/2024 11:26:18
== END 2025-04-04 13:49 | disposition home or self-care (01) ==
LOC: HO.HMCFM 13:28
PROVIDERS: PCP Internal Medicine; Visit Provider Internal Medicine
DX: I10 Essential (primary) hypertension (principal); E66.3 Overweight; R79.89 Other specified abnormal findings of blood chemistry

== ENCOUNTER → 2025-04-04 13:27 | Outpatient (BNVA) | payer OTHER, SELFPAY | PROVIDERS: PCP Internal Medicine; Visit Provider Internal Medicine | DX: Z00.00 Encounter for general adult medical examination without abnormal findings (principal); I10 Essential (primary) hypertension; E66.3 Overweight; Z68.32 Body mass index [BMI] 32.0-32.9, adult; R79.89 Other specified abnormal findings of blood chemistry; F43.9 Reaction to severe stress, unspecified; F41.9 Anxiety disorder, unspecified; Z13.31 Encounter for screening for depression; Z13.30 Encounter for screening examination for mental health and behavioral disorders, unspecified | CPT/HCPCS: 96127; 99202 ==